=== PATIENT | male | born 1975 | race Caucasian/White ===

== ENCOUNTER 2019-01-21 10:09 | Emergency (ER) | payer OTHER ==
[~2019-01-21] VITALS: Ht 180.3 cm; Wt 70.5 kg
[2019-01-21 13:04] VITALS: BP 120/68
== END 2019-01-21 13:14 | disposition home or self-care (01) ==
LOC: EMS 10:15
DX: L08.89 Other specified local infections of the skin and subcutaneous tissue (principal)

== ENCOUNTER 2019-03-28 14:38 | Inpatient (IN) | payer OTHER, MEDICAID ==
[~2019-03-28] VITALS: Ht 180.3 cm; Wt 73.9 kg
[2019-03-28] MEDS ORDERED: ZOLPIDEM TARTRATE 10 MG TABLET PO PRN (17:00)
[2019-03-28] MEDS ORDERED: HALOPERIDOL 5 MG TABLET PO PRN (17:00)
[2019-03-28 17:27] VITALS: BP 100/74
[2019-03-28] MEDS ORDERED: DIVA-78 PO (17:46)
[2019-03-28] MEDS ORDERED: OLAN10TA3 PO (17:46)
[2019-03-29 07:21] LABS: BASOPHILS % (AUTO) 0.4 % (0.0-2.0); EOSINOPHILS % (AUTO) 1.9 % (1.0-6.0); HEMATOCRIT 41.9 % (41-53); HEMOGLOBIN 13.9 g/dL (13.5-17.5); LYMPHOCYTES # (AUTO) 1.2 K/uL (1.0-4.8); LYMPHOCYTES % (AUTO) 25.3 % (22.0-44.0); MEAN CORPUSCULAR HEMOGLOBIN 27.5 pg (26.0-34.0); MEAN CORPUSCULAR HGB CONC 33.1 G/dL (31.0-37.0); MEAN CORPUSCULAR VOLUME 83 fL (80-100); MONOCYTES # (AUTO) 0.3 K/uL (0.1-1.0); MONOCYTES % (AUTO) 6.1 % (2.0-9.0); NEUTROPHILS % (AUTO) 66.3 % (40.0-70.0); PLATELET COUNT (AUTO) 283 K/uL (150-450); RED BLOOD CELL COUNT(AUTO) 5.05 MIL/uL (4.50-5.90); RED CELL DISTRIBUTION WIDTH 16.1 % (11.5-14.5)
[2019-03-29 07:45] LABS: HEMOGLOBIN A1C 5.3 % (4.5-6.2)
[2019-03-29 07:54] LABS: ALANINE AMINOTRANSFERASE 25 U/L (12-78); ALBUMIN 3.4 g/dL (3.4-5.0); ALKALINE PHOSPHATASE 71 U/L (46-116); ANION GAP 9 mmol/L (8-16); ASPARTATE AMINOTRANSFERASE 22 U/L (15-37); BILIRUBIN,TOTAL 0.5 mg/dL (0.1-1.0); CALCIUM, TOTAL 8.7 mg/dL (8.8-10.5); CARBON DIOXIDE 26 mmol/L (22-29); CHLORIDE 105 mmol/L (98-107); CHOL/HDL RATIO 2.2 (4.2-7.3); CHOLESTEROL 156 mg/dL (131-200); FREE T4 (FREE THYROXINE) 1.23 ng/dL (0.76-1.46); GLOMERULAR FILTR. RATE CALC > 60 mL/min (>60); GLUCOSE,RANDOM 96 mg/dL (70-110); HDL CHOLESTEROL 70 mg/dL (40-60); LDL CHOL (CALC.) 74 mg/dL (0-130); POTASSIUM 4.3 mmol/L (3.5-5.1); SODIUM SERUM 140 mmol/L (136-145); THYROID STIMULATING HORMONE 0.72 uIU/mL (0.36-3.74); TOTAL PROTEIN, SERUM 6.9 g/dL (6.4-8.2); TRIGLYCERIDES 59 mg/dL (15-150); UREA NITROGEN, BLOOD 17 mg/dL (7-18)
[2019-03-29 08:00] VITALS: BP 116/74
[2019-03-29] MEDS: OLANZapine 5 MG RAPDIS TABLET PO SCH ×2 (10:14→16:46)
[2019-03-29] MEDS: DIVALPROEX SODIUM 500 MG ER TABLET PO SCH ×2 (10:14→16:46)
[2019-03-29 16:14] VITALS: BP 115/74
[2019-03-30 06:12] VITALS: BP 117/72
[2019-03-30 08:10] VITALS: BP 129/73
[2019-03-30] MEDS: LORazepam 2 MG TABLET PO PRN ×2 (08:35→19:14)
[2019-03-30] MEDS: DIVALPROEX SODIUM 500 MG ER TABLET PO SCH ×2 (08:35→16:55)
[2019-03-30] MEDS: OLANZapine 5 MG RAPDIS TABLET PO SCH ×2 (08:35→16:55)
[2019-03-30] MEDS: MUPIROCIN CALCIUM 2% 22 GM OINTMENT NASAL SCH (16:56)
[2019-03-31 03:49] VITALS: BP 124/69
[2019-03-31 08:04] VITALS: BP 109/61
[2019-03-31] MEDS: OLANZapine 5 MG RAPDIS TABLET PO SCH ×2 (09:46→16:48)
[2019-03-31] MEDS: MUPIROCIN CALCIUM 2% 22 GM OINTMENT NASAL SCH ×2 (09:46→16:49)
[2019-03-31] MEDS: DIVALPROEX SODIUM 500 MG ER TABLET PO SCH ×2 (09:46→16:48)
[2019-03-31 10:07] LABS: HIV 1-2 SCREEN 4TH GEN W/RFLX Non Reactive (Non Reactive)
[2019-03-31 17:08] VITALS: BP 111/73
[2019-04-01 04:51] VITALS: BP 118/70
[2019-04-01] MEDS: MUPIROCIN CALCIUM 2% 22 GM OINTMENT NASAL SCH ×2 (08:24→16:04)
[2019-04-01] MEDS: OLANZapine 5 MG RAPDIS TABLET PO SCH ×2 (08:24→16:04)
[2019-04-01] MEDS: DIVALPROEX SODIUM 500 MG ER TABLET PO SCH ×2 (08:24→16:04)
[2019-04-01 08:33] VITALS: BP 117/82
[2019-04-01 16:00] VITALS: BP 121/75
[2019-04-01] MEDS: LORazepam 2 MG TABLET PO PRN (16:04)
[2019-04-02 00:55] VITALS: BP 124/68
[2019-04-02] MEDS: MUPIROCIN CALCIUM 2% 22 GM OINTMENT NASAL SCH ×2 (08:09→17:12)
[2019-04-02] MEDS: DIVALPROEX SODIUM 500 MG ER TABLET PO SCH ×2 (08:09→16:07)
[2019-04-02] MEDS: OLANZapine 5 MG RAPDIS TABLET PO SCH ×2 (08:09→16:07)
[2019-04-02 08:12] VITALS: BP 112/56
[2019-04-02] MEDS: LORazepam 2 MG TABLET PO PRN (16:07)
[2019-04-02 16:13] VITALS: BP 130/76
[2019-04-03 07:00] VITALS: BP 132/63
[2019-04-03 07:55] VITALS: BP 126/66
[2019-04-03] MEDS: OLANZapine 5 MG RAPDIS TABLET PO SCH ×2 (08:28→16:40)
[2019-04-03] MEDS: DIVALPROEX SODIUM 500 MG ER TABLET PO SCH ×2 (08:29→16:40)
[2019-04-03] MEDS: MUPIROCIN CALCIUM 2% 22 GM OINTMENT NASAL SCH ×2 (08:29→16:40)
[2019-04-03 16:00] VITALS: BP 123/67
[2019-04-03] MEDS: LORazepam 2 MG TABLET PO PRN (16:40)
[2019-04-03] MEDS ORDERED: HYDROCORTISONE 1% 30 GM CREAM TP PRN (19:15)
[2019-04-04] MEDS: DIVALPROEX SODIUM 500 MG ER TABLET PO SCH ×2 (08:29→16:57)
[2019-04-04] MEDS: OLANZapine 5 MG RAPDIS TABLET PO SCH ×2 (08:29→16:57)
[2019-04-04] MEDS: MUPIROCIN CALCIUM 2% 22 GM OINTMENT NASAL SCH ×2 (08:29→16:57)
[2019-04-04 09:22] VITALS: BP 113/78
[2019-04-04 16:00] VITALS: BP 119/79
[2019-04-04] MEDS: LORazepam 2 MG TABLET PO PRN (16:57)
[2019-04-05 05:20] VITALS: BP 122/75
[2019-04-05 08:01] VITALS: BP 122/66
[2019-04-05] MEDS: DIVALPROEX SODIUM 500 MG ER TABLET PO SCH ×2 (08:20→16:38)
[2019-04-05] MEDS: OLANZapine 10 MG TABLET PO SCH ×2 (08:20→16:38)
[2019-04-05] MEDS: MUPIROCIN CALCIUM 2% 22 GM OINTMENT NASAL SCH ×2 (08:24→16:38)
[2019-04-05 16:01] VITALS: BP 118/62
[2019-04-05] MEDS: LORazepam 2 MG TABLET PO PRN (16:39)
[2019-04-06 02:08] VITALS: BP 117/72
[2019-04-06] MEDS: OLANZapine 10 MG TABLET PO SCH ×2 (08:00→16:59)
[2019-04-06] MEDS: MUPIROCIN CALCIUM 2% 22 GM OINTMENT NASAL SCH ×2 (08:01→16:59)
[2019-04-06] MEDS: DIVALPROEX SODIUM 500 MG ER TABLET PO SCH ×2 (08:01→16:59)
[2019-04-06 08:12] VITALS: BP 113/73
[2019-04-06] MEDS: LORazepam 2 MG TABLET PO PRN ×2 (10:09→16:59)
[2019-04-06] MEDS ORDERED: ACETAMINOPHEN 325 MG TABLET PO PRN (18:45)
[2019-04-06] MEDS ORDERED: IBUPROFEN 600 MG TABLET PO PRN (18:45)
[2019-04-07 08:06] VITALS: BP 103/59
[2019-04-07] MEDS: DIVALPROEX SODIUM 500 MG ER TABLET PO SCH ×2 (08:12→16:50)
[2019-04-07] MEDS: OLANZapine 10 MG TABLET PO SCH ×2 (08:12→16:50)
[2019-04-07] MEDS: LORazepam 2 MG TABLET PO PRN (16:50)
[2019-04-08] MEDS: DIVALPROEX SODIUM 500 MG ER TABLET PO SCH (08:25)
[2019-04-08] MEDS: OLANZapine 10 MG TABLET PO SCH ×2 (08:25→16:14)
[2019-04-08 08:44] VITALS: BP 101/61
[2019-04-08] MEDS ORDERED: DIVALPROEX SODIUM 250 MG ER TABLET PO ONE (10:45)
[2019-04-08 16:00] VITALS: BP 101/63
[2019-04-08] MEDS: DIVALPROEX SODIUM 250 MG ER TABLET PO SCH (16:14)
[2019-04-09 01:49] VITALS: BP 114/78
[2019-04-09 08:00] VITALS: BP 115/61
[2019-04-09] MEDS: DIVALPROEX SODIUM 250 MG ER TABLET PO SCH ×2 (08:08→16:41)
[2019-04-09] MEDS: OLANZapine 10 MG TABLET PO SCH ×2 (08:08→16:41)
[2019-04-09 16:00] VITALS: BP 106/65
[2019-04-09] MEDS: LORazepam 2 MG TABLET PO PRN (16:41)
[2019-04-10 05:39] VITALS: BP 104/61
[2019-04-10] MEDS: OLANZapine 10 MG TABLET PO SCH ×2 (08:42→17:07)
[2019-04-10] MEDS: DIVALPROEX SODIUM 250 MG ER TABLET PO SCH ×2 (08:42→17:07)
[2019-04-10 09:46] VITALS: BP 102/65
[2019-04-10] MEDS: LORazepam 2 MG TABLET PO PRN ×2 (10:55→19:02)
[2019-04-10 16:00] VITALS: BP 105/63
[2019-04-11 00:14] VITALS: BP 122/63
[2019-04-11 08:54] VITALS: BP 119/71
[2019-04-11] MEDS: OLANZapine 10 MG TABLET PO SCH ×2 (09:50→16:42)
[2019-04-11] MEDS: DIVALPROEX SODIUM 250 MG ER TABLET PO SCH ×2 (09:50→16:43)
[2019-04-11 16:08] VITALS: BP 129/56
[2019-04-11] MEDS: LORazepam 2 MG TABLET PO PRN (16:43)
[2019-04-12 06:00] VITALS: BP 115/58
[2019-04-12 08:06] VITALS: BP 121/72
[2019-04-12] MEDS: OLANZapine 10 MG TABLET PO SCH ×2 (08:37→16:48)
[2019-04-12] MEDS: DIVALPROEX SODIUM 250 MG ER TABLET PO SCH ×2 (08:37→16:48)
[2019-04-12] MEDS: LORazepam 2 MG TABLET PO PRN (08:42)
[2019-04-12 17:19] VITALS: BP 124/84
[2019-04-13 06:48] VITALS: BP 116/75
[2019-04-13 08:17] VITALS: BP 105/70
[2019-04-13] MEDS: OLANZapine 10 MG TABLET PO SCH ×2 (08:38→16:31)
[2019-04-13] MEDS: DIVALPROEX SODIUM 250 MG ER TABLET PO SCH ×2 (09:00→16:31)
[2019-04-13] MEDS: LORazepam 2 MG TABLET PO PRN (10:46)
[2019-04-13 16:07] VITALS: BP 119/60
[2019-04-14 06:54] VITALS: BP 112/72
[2019-04-14] MEDS: OLANZapine 10 MG TABLET PO SCH ×2 (08:03→16:05)
[2019-04-14] MEDS: DIVALPROEX SODIUM 250 MG ER TABLET PO SCH ×2 (08:03→16:05)
[2019-04-14 08:32] VITALS: BP 140/79
[2019-04-14 16:45] VITALS: BP 105/67
[2019-04-15 04:28] VITALS: BP 110/66
[2019-04-15 08:17] VITALS: BP 111/78
[2019-04-15] MEDS: LORazepam 2 MG TABLET PO PRN (08:28)
[2019-04-15] MEDS: OLANZapine 10 MG TABLET PO SCH (08:28)
[2019-04-15] MEDS: DIVALPROEX SODIUM 250 MG ER TABLET PO SCH (08:28)
[2019-04-15] MEDS ORDERED: DIVA250T45 PO (12:11)
[2019-04-15] MEDS ORDERED: OLAN10TA3 PO (12:14)
== END 2019-04-15 12:45 | disposition home or self-care (01) | DRG 885 ==
LOC: B3A 16:55
PROVIDERS: ADMIT Psychiatry & Neurology Child & Adolescent Psychiatry; ATTEND Psychiatry & Neurology Child & Adolescent Psychiatry
DX: F25.0 Schizoaffective disorder, bipolar type (principal); F15.90 Other stimulant use, unspecified, uncomplicated; F41.9 Anxiety disorder, unspecified; R21 Rash and other nonspecific skin eruption; Z88.1 Allergy status to other antibiotic agents
CPT/HCPCS: 80074; 83036; 84439; 84443; 86592; 87081; 87389